=== PATIENT | female | born 1975 | race Caucasian/White ===

== ENCOUNTER 2018-08-26 20:56 | Emergency (ER) | payer MEDICAID ==
[~2018-08-26] VITALS: Ht 157.5 cm; Wt 86.2 kg
[2018-08-26 21:03] VITALS: BP 132/84
--- NOTE | 2018-08-26 21:05 | NUR ---
TO LOBBY A/W BED, AMBULATORY
--- NOTE | 2018-08-26 23:02 | NUR ---
AMBULATED TO ER BED 9
--- NOTE | 2018-08-26 23:15 | NUR ---
43/F PRESENTS WITH FAMILY/FRIEND, C/O 8/10 PRESSURE-LIKE OCCIPITAL AND L TEMPORAL HEADACHE, X1 WEEK WORSENING TODAY. PT REPORTS NAUSEA, REPORTS VOMITING MULTIPLE EPISODES TODAY. PT WAS SEEN BY PCP 1 WEEK AGO, DX BRONCHITIS, FINISHED RX Z-PACK, COUGH MEDICINE, AND VENTOLIN INHALER. AOX4, GCS 15, SKIN NORMAL DRY AND INTACT, RR EVEN AND UNLABORED. LUNG SOUNDS CLEAR BL. DENIES MED HX.
[2018-08-27] MEDS ORDERED: predniSONE 20 MG TAB PO ONE (00:10)
[2018-08-27] MEDS ORDERED: KETOROLAC 60 MG/2 ML VIAL IM ONE (00:10)
[2018-08-27] MEDS ORDERED: ONDANSETRON 4 MG ODT PO ONE (00:25)
[2018-08-27 00:55] VITALS: BP 121/75
--- NOTE | 2018-08-27 00:55 | NUR ---
Patient discharged with v/s stable. Written and verbal after care instructions given and explained. Patient alert, oriented and verbalized understanding of instructions. Ambulatory with steady gait. All questions addressed prior to discharge. ID band removed. Patient advised to follow up with PMD. Rx of PROMETHAZINE/DEXTROMETHORPHAN, PREDNISONE given. Patient educated on indication of medication including possible reaction and side effects. Opportunity to ask questions provided and answered.
== END 2018-08-27 00:55 | disposition home or self-care (01) ==
LOC: MED 20:56
DX: R05 Cough (principal); R51 Headache; J02.9 Acute pharyngitis, unspecified; R11.10 Vomiting, unspecified
CPT/HCPCS: 71046; 96372; 99283; J1885; J7512; Q0162